=== PATIENT | female | born 1990 | race Caucasian/White ===

== ENCOUNTER 2018-07-19 16:52 | Inpatient (IN) | payer MEDICAID, OTHER ==
[~2018-07-19] VITALS: Ht 157.5 cm; Wt 95.0 kg
[2018-07-19] MEDS ORDERED: LACTATED RINGER'S 1,000 ML IV PRN (17:27)
[2018-07-19] MEDS ORDERED: METHYLERGONOVINE 0.2 MG INJ IM PRN (17:30)
[2018-07-19] MEDS ORDERED: CARBOPROST 250 MCG INJ IM PRN (17:30)
[2018-07-19] MEDS ORDERED: BUTORPHANOL 2 MG INJ IV PRN ×2 (17:30)
[2018-07-19] MEDS ORDERED: OXYTOCIN 30 UNITS/LR 500 ML IV SCH ×3 (17:30)
[2018-07-19] MEDS ORDERED: OXYTOCIN 30 UNITS/LR 500 ML IV PRN (17:30)
[2018-07-19] MEDS ORDERED: AMPICILLIN 2 GM/NS (PMX) 100 ML IV ONE (17:30)
[2018-07-19] MEDS ORDERED: LIDOCAINE 1% (MPF) 30 ML INJ INJ PRN (17:30)
[2018-07-19] MEDS ORDERED: MISOPROSTOL 200 MCG TAB PR PRN (17:30)
[2018-07-19 17:33] VITALS: BP 136/83; PULSE 97; Ht 157.5 cm; Wt 95.0 kg
--- NOTE | 2018-07-19 17:56 | HP ---
Date/Time of Note Date/Time of Note DATE: 07/19/18 TIME: 17:52 OB - History Hx of Present Free Text/Dictation 27-year-old female 2 para 1 at term gestation admitted in labor at 40 weeks and 4 days Last Menstrual Period: Oct 08, 2017 Estimated Due Date: July 15, 2018 : 3 Para: 1 Spontaneous : 0 Therapeutic : 1 Care: Good Care Ultrasounds: Normal mid trimester US (h) Obstetrical Complications: None Medical Complications: None Past Family/Social History * Past Medical, Surgical, Family and Obstetric Histories reviewed from chart. Blood Type: O+ Rubella: immune RPR/VDRL: Negative GBS Status: Negative HBsAG: Negative OB Admission Exam Vital Signs Vital Signs Vital Signs Date Temp Pulse Resp B/P (MAP) Pulse Ox O2 O2 Flow FiO2 Time Delivery Rate 07/19/18 98.1 97 136/83 17:33 (100) Physical Exam HEENT: WNL Heart: Rhythm Normal Lungs: Clear, Equal Abdomen: WNL Extremities: Normal Reflexes: Normal Cervical Dilatation: 4cm Effacement: 75% Station: -3 Membranes: Intact Heart Rate: 140's Accelerations: Accelerations Present Decelerations: No Decelerations Varibility: Marked Contractions on Admission: 6-10 Minutes Apart Date/Time Contractions Began: 07/19/2018 in a.m. Frequency of Contractions: Every 3 to 4 minutes Duration: Over 60 seconds Intensity: Mild OB Assessment/Plan Other Assessment: Term gestation Labor contractions Other plan: Proceed with spontaneous labor Anticipate vaginal delivery MONROE COLEMAN MD July 19, 2018 17:56
[2018-07-19] MEDS: LACTATED RINGER'S 1,000 ML IV SCH ×2 (21:04→22:48)
[2018-07-19] MEDS ORDERED: AMPICILLIN 1 GM/NS (PMX) 50 ML IV SCH (21:30)
--- NOTE | 2018-07-19 21:35 | PREAC ---
Date/Time of Note Date/Time of Note DATE: 07/19/18 TIME: 21:34 Anesthesia Eval and Record Evaluation Time Pre-Procedure Interview DATE: 07/19/18 TIME: 21:34 Age 27 Sex female NPO: Other (na) Preoperative diagnosis labor pain Planned procedure epidural Past Medical History Past Medical History: None Surgery & Anesthesia Issues No known issue Meds Anticoagulation: No Beta Virgilio within 24 hr: No Reason Beta Virgilio not given: Pt. not on B-Virgilio Current Medications Lactated Ringer's 1,000 ml @ 125 mls/hr Q8H IV Last administered on 07/19/18at 21:04; Admin Dose 125 MLS/HR; Start 07/19/18 at 17:27 Butorphanol Tartrate (Stadol) 1 mg Q2H PRN IV .PAIN SCALE 1-5; Start 07/19/18 at 17:30 Butorphanol Tartrate (Stadol) 2 mg Q2H PRN IV .PAIN SCALE 6-10; Start 07/19/18 at 17:30 Lidocaine (Xylocaine 1% (Mpf)) 30 ml ONCE PRN INJ .EPISIOTOMY; Start 07/19/18 at 17:30 Oxytocin/Lactated Ringer's 500 ml @ 500 mls/hr ONCE POST IV ; Start 07/19/18 at 17:30 Oxytocin/Lactated Ringer's 500 ml @ 125 mls/hr POST IV ; Start 07/19/18 at 17:30 Lactated Ringer's 1,000 ml @ 2,000 mls/hr Q30M PRN IV .ANESTHESIA; Start 07/19/18 at 17:27 Oxytocin/Lactated Ringer's 500 ml @ 0 mls/hr ONCE PRN IV .VAGINAL BLEEDING; Start 07/19/18 at 17:30 Methylergonovine Maleate (Methergine) 0.2 mg ONCE PRN IM .VAGINAL BLEEDING; Start 07/19/18 at 17:30 Carboprost Tromethamine (Hemabate) 250 mcg ONCE PRN IM .VAGINAL BLEEDING; Start 07/19/18 at 17:30 Misoprostol (Cytotec) 1,000 mcg ONCE PRN CA .VAGINAL BLEEDING; Start 07/19/18 at 17:30 Oxytocin/Lactated Ringer's 500 ml @ 0 mls/hr FOR AUGMENTATION IV Last administered on 07/19/18at 18:54; Admin Dose 1 MLS/HR; Start 07/19/18 at 17:30 Meds reviewed: Yes Allergies Coded Allergies: aspirin (Verified Allergy, Intermediate, swelling of hands face, mouth, 07/19/18) Allergies Reviewed: Yes Labs/Studies Labs Reviewed: Reviewed by anesthesiologist Result Diagram: 07/19/18 1800 Laboratory Tests 07/19/18 18:00 Blood Bank Test 07/19/18 18:00 Antibody Screen NEGATIVE Blood Type O POSITIVE Rh Immune Globulin Candidate NO test: N/A Pre-procedure Exam Last vitals Vital Signs Date Temp Pulse Resp B/P (MAP) Pulse Ox O2 O2 Flow FiO2 Time Delivery Rate 07/19/18 98.1 97 136/83 17:33 (100) Airway: Adequate mouth opening, Adequate thyromental dist Mallampati: Mallampati III Teeth: Normal Lung: Normal Heart: Normal ASA Physical Status ASA physical status: 2 Emergency: None Pre-operative Attestations Prior to commencing anesthesia and surgery, the patient was re-evaluated, there was verification of: *The patient's identity *The results of appropriate recent lab work and preoperative vital signs *The above evaluation not changing prior to induction *Anesthetic plan, risk benefits, alternative and complications discussed with patient/family; questions answered; patient/family understands, accepts and wishes to proceed. HADLEY NOEL DO July 19, 2018 21:35
[2018-07-19] MEDS ORDERED: NALOXONE (0.4 MG/ML) INJ IV PRN (22:00)
[2018-07-20] MEDS ORDERED: DEXTROSE 5%-LR 1,000 ML IV SCH (00:29)
[2018-07-20] MEDS: FENTAnyl 2MCG/ML-ROPIV 0.2% 100 ML BAG EPI SCH ×2 (04:36→04:40)
--- NOTE | 2018-07-20 07:02 | LDN ---
Date/Time of Note Date/Time of Note DATE: 07/20/18 TIME: 06:59 Delivery Summary Weeks of Gestation 40 weeks and 5 days Placenta Delivered: Spontaneously Meconium: Thick Episiotomy: No Laceration repair: Second degree perineal laceration repaired with 3-0 Vicryl and 3-0 chromic. Anesthesia type: Epidural Estimated blood loss: 200 Sponge & Needle done & correct: Yes All needle counts correct: Yes Any foreign bodies felt in the: No Delivery Information Sex Infant Sex: female Apgars 1 Minute: 8 5 Minute: 9 Suctioning Nose & mouth suctioned at petros: No Umbilical Cord Umbilical cord with: 3 Vessels Cord presentations: no nuchal cord Cord Blood was obtained: Yes Mother & Baby Disposition Disposition Mom & Baby to Maternity; Good: Yes HANANE REYES MD July 20, 2018 07:02
[2018-07-20 09:00] VITALS: BP 137/67; PULSE 91; RESP 18
[2018-07-20] MEDS: BENZOCAINE 20% 56 ML SPRAY TOP PRN (09:59)
[2018-07-20] MEDS: WITCH HAZEL/GLYCERIN PAD PR PRN (09:59)
[2018-07-20 10:00] VITALS: BP 133/76; PULSE 84; RESP 18
[2018-07-20] MEDS ORDERED: METHYLERGONOVINE 0.2 MG INJ IM PRN (10:00)
[2018-07-20] MEDS ORDERED: HYDROCODONE/APAP (5/325) TAB PO PRN (10:00)
[2018-07-20] MEDS ORDERED: DIBUCAINE 1% 30 GM OINT TOP PRN (10:00)
[2018-07-20] MEDS ORDERED: OXYTOCIN 30 UNITS/LR 500 ML IV PRN (10:00)
[2018-07-20] MEDS ORDERED: CARBOPROST 250 MCG INJ IM PRN (10:00)
[2018-07-20] MEDS ORDERED: ACETAMINOPHEN 325 MG TAB PO PRN (10:00)
[2018-07-20] MEDS ORDERED: MISOPROSTOL 200 MCG TAB PR PRN (10:00)
[2018-07-20] MEDS ORDERED: IBUPROFEN 600 MG TAB PO SCH (12:00)
--- NOTE | 2018-07-20 14:29 | PAC ---
Date/Time of Note Date/Time of Note DATE: 07/20/18 TIME: 14:29 Post-Anesthesia Notes Post-Anesthesia Note Last documented vital signs Vital Signs Date Temp Pulse Resp B/P (MAP) Pulse Ox O2 O2 Flow FiO2 Time Delivery Rate 07/20/18 84 18 133/76 Room Air 10:00 (95) 07/20/18 98.9 09:00 Activity: WNL Respiratory function: WNL Cardiovascular function: WNL Mental status: Baseline Pain reasonably controlled: Yes Hydration appropriate: Yes Nausea/Vomiting absent: Yes HADLEY NOEL DO July 20, 2018 14:29
[2018-07-20] MEDS: ACETAMINOPHEN 325 MG TAB PO SCH ×2 (16:25→22:27)
[2018-07-20 16:30] VITALS: BP 119/57; PULSE 92; RESP 18
[2018-07-20] MEDS: LACTATED RINGER'S 1,000 ML IV* SCH ×2 (17:31→21:00)
[2018-07-20] MEDS: CEPHALEXIN 500 MG CAP PO SCH (17:39)
[2018-07-20 20:00] VITALS: BP 128/70; PULSE 90; RESP 18
[2018-07-20] MEDS: SENNA/DOCUSATE NA (8.6MG/50MG) TAB PO SCH (21:00)
[2018-07-21] VITALS: BP 126/59; PULSE 93; RESP 18
[2018-07-21] MEDS: CEPHALEXIN 500 MG CAP PO SCH ×4 (00:21→17:51)
[2018-07-21] MEDS: LACTATED RINGER'S 1,000 ML IV* SCH ×3 (01:31→17:31)
[2018-07-21 04:00] VITALS: BP 128/60; PULSE 96; RESP 18
[2018-07-21] MEDS: ACETAMINOPHEN 325 MG TAB PO SCH ×4 (06:10→17:51)
[2018-07-21 08:00] VITALS: BP 116/86; PULSE 77; RESP 18
[2018-07-21] MEDS: SENNA/DOCUSATE NA (8.6MG/50MG) TAB PO SCH ×2 (08:14→21:00)
[2018-07-21] MEDS: BENZOCAINE 20% 56 ML SPRAY TOP PRN (11:39)
[2018-07-21] MEDS: WITCH HAZEL/GLYCERIN PAD PR PRN (11:39)
--- NOTE | 2018-07-21 14:40 | DS ---
Date/Time of Note Date/Time of Note Home today or next day DATE: 07/21/18 TIME: 14:39 Obstetrical Discharge Record Final Diagnosis Final Diagnosis: Term delivered Other Final Diagnosis Status post vaginal delivery Vaginal Delivery Obstetrical Delivery: Spontaneous, Laceration, Repaired Complications Augmentation: Yes Induction: Yes Condition on Discharge Physical Assessment Last Vitals: See nurse's notes Voiding: Yes Bowel Movement: Yes Breast: Soft, non-tender, Filling Fundus: Firm Abdomen and Incision: Abdomen is soft with firm fundus Episiotomy: Perineum is healing well and appears clean Calf Tenderness: No Patient Condition: Good MONROE COLEMNA MD July 21, 2018 14:39
[2018-07-21] MEDS ORDERED: ACET325T33 PO (14:45)
--- NOTE | 2018-07-21 14:45 | PD.PPDC ---
SENIOR PYTHON DEVELOPER Discharge Instruction Provider Information Physician Information 27-year-old female had vaginal delivery Condition [id number] Patient Condition: [id number] Good Diet [id number] Diet: [id number] Resume Regular Diet Activity/Restrictions [id number] Activity: [id number] Normal Activity May Shower [id number] Restrictions: [id number] Nothing in the Vagina [id number] Return to Work or School: [id number] Sep 05, 2018 Follow-up Follow-up with Physician: 2, 4, Week/Weeks (In clinic for follow-up) Return to clinic for [id number] OB Instructions: [id number] Breast Tenderness Depression Comment: Pelvic rest for 6 weeks MONROE COLEMAN MD July 21, 2018 14:45
[2018-07-21 15:37] VITALS: BP 120/72; PULSE 72; RESP 18
[2018-07-21 20:00] VITALS: BP 118/62; PULSE 78; RESP 17
[2018-07-22] MEDS: CEPHALEXIN 500 MG CAP PO SCH ×3 (00:12→11:31)
[2018-07-22] MEDS: ACETAMINOPHEN 325 MG TAB PO SCH ×3 (00:12→11:32)
[2018-07-22] MEDS: LACTATED RINGER'S 1,000 ML IV* SCH ×2 (01:31→09:31)
[2018-07-22 04:00] VITALS: BP 124/78; PULSE 76; RESP 18
[2018-07-22 08:25] VITALS: BP 129/72; PULSE 80; RESP 17
[2018-07-22] MEDS: SENNA/DOCUSATE NA (8.6MG/50MG) TAB PO SCH (08:34)
[2018-07-22] MEDS ORDERED: DIPHTH/TET/ACEL PERTUSS (ADULT) 0.5 ML VIAL IM* ONE (09:00)
--- NOTE | 2018-07-23 13:19 | DELSUM ---
Delivery Summary A-C Datetime Report Generated by CPN: 07/23/2018 13:19 DELIVERY PERSONNEL Card Punching Machine Operator: Quintero, Citlaly MATERNAL INFORMATION Delivery Anesthesia: Epidural Medications in Delivery: 30 UNITS OF PITOCIN Delivery QBL (ml): 200 Placenta Cultured: No Maternal Complications: None LABOR SUMMARY EDC: 07/15/2018 00:00 No. Babies in Womb: 1 Attempted: No Labor Anesthesia: Epidural LABOR INFORMATION Reason for Induction: Not Applicable Complete Dilatation: 07/20/2018 06:20 Oxytocin: Augmentation Group B Beta Strep: Negative Antibiotics # of Doses: 0 Steroids Given: None Reason Steroids Not Administered: Not Applicable MEMBRANES Membranes Rupture Method: Spontaneous Rupture of Membranes: 07/20/2018 06:20 Length of Rupture (hr): 0.22 Amniotic Fluid Color: Heavy Meconium Amniotic Fluid Amount: Large Amniotic Fluid Odor: None STAGES OF LABOR Stage 2 hr: 0 Stage 2 min: 13 Stage 3 hr: 0 Stage 3 min: 3 VAGINAL DELIVERY Episiotomy: None Laceration Extension: Second Degree Laceration Type: Perineal Laceration Repair: Yes Initial Vag Sponge Count: 10 Final Vag Sponge Count: 10 Initial Vag Sharps Count: 1+2 Final Vag Sharps Count: 3 Sponge Count Correct: Yes; Vaginal Sweep Performed Sharps Count Correct: Yes BABY A INFORMATION Delivery Date/Time: 07/20/2018 06:33 Method of Delivery: Vaginal Born in Route : No : N/A Forceps: N/A Vacuum Extraction: N/A Shoulder Dystocia : N/A SHOULDER DYSTOCIA BABY A Infant Delivery Date/Time: 07/20/2018 06:33 PRESENTATION/POSITION BABY A Presentation: Cephalic Cephalic Presentation: Vertex Vertex Position: Left Occipital Anterior Breech Presentation: N/A PLACENTA INFORMATION BABY A Placenta Delivery Time : 07/20/2018 06:36 Placenta Method of Delivery: Spontaneous Placenta Status: Delivered SCORES BABY A Heart Rate 1 min: >100 bpm Resp Effort 1 min: Good Cry Reflex Irritability 1 min: Cough/Sneeze/Pulls Away Muscle Tone 1 min: Active Motion Color 1 min: Blue/Pale Resuscitation Effort 1 min: Tactile Stimulation SCORE 1 MIN: 8 Heart Rate 5 min: >100 bpm Resp Effort 5 min: Good Cry Reflex Irritability 5 min: Cough/Sneeze/Pulls Away Muscle Tone 5 min: Active Motion Color 5 min: Body [place], Extremit Blue Resuscitation Effort 5 min: Tactile Stimulation SCORE 5 MIN: 9 INFANT INFORMATION BABY A Gestational Age at Delivery: 40.5 Gestational Status: Full Term- 39- 40.6 Weeks Outcome : Liveborn Infant Condition : Stable Sex: Female IDENTIFICATION/MEDS BABY A ID Band Number: [id number] ID Band Location: Right Leg; Left Arm Sensor Applied: Yes Sensor Number: [id number] Sensor Location : Cord Clamp Vitamin K Given : Not Given Erythromycin Given: Not Given WEIGHT/LENGTH BABY A Birthweight (gm): 3605 Weight (lb): 7 Weight (oz): 15 Length (in): 19.75 Infant Length (cm): 50.17 CORD INFORMATION BABY A No. Cord Vessels: 3 Nuchal Cord : N/A Cord Blood Taken: Yes Suction: Mouth; Nose ASSESSMENT BABY A Infant Complications: Meconium Physical Findings at Delivery: Molding of the Head Infant Respirations: Appears Normal Svp Marketing/ALS Called : No Infant Care By: RASHID KANG Transferred To: Remains with Mother
== END 2018-07-22 12:50 | disposition home or self-care (01) | DRG 807 ==
LOC: OBT 16:52 → L-D 16:52 → OBT 16:56 → L-D 17:08 → PP1 07-20 08:50
PROVIDERS: ADMIT Obstetrics & Gynecology; ATTEND Obstetrics & Gynecology
PROC: 10E0XZZ Delivery of Products of Conception, External Approach (ICD-10-PCS; principal; 2018-07-20)
PROC: 0KQM0ZZ Repair Perineum Muscle, Open Approach (ICD-10-PCS; 2018-07-20)
DX: O77.0 Labor and delivery complicated by meconium in amniotic fluid (principal); Z37.0 Single live birth; O70.1 Second degree perineal laceration during delivery; Z3A.40 40 weeks gestation of pregnancy
CPT/HCPCS: 62322; 80053; 81001; 84560; 85025; 85610; 85730; 86592; 86850; 86900; 86901; 87340; 99464; J2590; J3010; J7120; J7121